=== PATIENT | female | born 1930 | race Asian ===

== ENCOUNTER 2017-12-09 13:08 | Inpatient (IN) | payer MEDICARE, MEDICAID ==
--- NOTE | 2017-12-09 13:18 | ED Physician Chart ---
ED Chief Complaint/HPI - Patient Information Date Seen:: 12/09/17 Time Seen:: 13:05 Chief Complaint:: Poor Oral Intake History of Present Illness:: onset x 3 days of poor oral intake and failure to thrive; no report of trauma, H /as, neck pain, C/P, SOB, Abd. Pain, A/N/V/D/C, fever, chills, or urinary s/s Historian:: Patient Review:: Nurse's Note Reviewed ED Review of Systems - Review of Systems General/Constitutional: No fever, No chills, No weight loss, No weakness, No diaphoresis, No edema, No loss of appetite Skin: No skin lesions, No rash, No bruising Head: No headache, No light-headedness Eyes: No loss of vision, No pain, No diplopia ENT: No earache, No nasal drainage, No sore throat, No tinnitus Neck: No neck pain, No swelling, No thyromegaly, No stiffness, No mass noted Cardio Vascular: No chest pain, No palpitations, No PND, No orthopnea, No edema Pulmonary: No SOB, No cough, No sputum, No wheezing GI: No nausea, No vomiting, No diarrhea, No pain, No melena, No hematochezia, No constipation, No hematemesis G/U: No dysuria, No frequency, No hematuria, No nacturia Director Cardiovascular: No vaginal discharge, No abnormal vaginal bleed, No contraction Musculoskeletal: No bone or joint pain, No back pain, No muscle pain Endocrine: No polyuria, No polydipsia Psychiatric: No prior psych history, No depression, No anxiety, No suicidal ideation, No homicidal ideation, No auditory hallucination, No visual hallucination Hematopoietic: No bruising, No lymphadenopathy Allergic/Immuno: No urticaria, No angioedema Neurological: No syncope, No focal symptoms, No weakness, No paresthesia, No headache, No seizure, No dizziness, Confusion, No vertigo ED Past Medical History - Past Medical History Obtainable: Yes Past Medical History: HTN, DM, CAD, Dyslipidemia, Dementia Family History: Diabetes Melitus, HTN Social History: Non Smoker, No Alcohol, No Drug Use, Single, Care Facility Surgical History: CABG Psychiatricy History: Dementia Medication: Reviewed Family Medical History - Family Member Mother Living Status: ED Physical Exam - Physical Examination General/Constitutional: Awake, Well-developed, well-nourished, Alert, No distress, GCS 15, Non-toxic appearing, Ambulatory Head: Atraumatic Eyes: Lids, conjuctiva normal, PERRL, EOMI Skin: Nl inspection, No rash, No skin lesions, No ecchymosis, Well hydrated, No lymphadenopathy ENMT: External ears, nose nl, TM canals nl, Nasal exam nl, Lips, teeth, gums nl , Oropharynx nl, Tonsils nl Neck: Nontender, Full ROM w/o pain, No JVD, No nuchal rigidity, No bruit, No mass, No stridor Respiratory: Nl effort/Exclusion, Clear to Auscultation, No Wheeze/Rhonchi/Rales Cardio Vascular: RRR, No murmur, gallop, rubs, NL S1 S2, Carotid/Femoral/Distal pulses equal bilaterally GI: No tenderness/rebounding/guarding, No organomegaly, No hernia, Normal BS's, Nondistended, No mass/bruits, No McBurney tenderness : No CVA tenderness Extremities: No tenderness or effusion, Full ROM, normal strength in all extremities, No edema, Normal digits & nails Neuro/Psych: Alert/oriented, DTR's symmetric, Normal sensory exam, Normal motor strength, Judgement/insight normal, Mood normal, Normal gait, No focal deficits Misc: Normal back, No paraspinal tenderness ED Labs/Radiology/EKG Results - Lab Results Comments:: Na+: 131; BUN: 30; + Anemia - Radiology Results Comments:: NAD - EKG Interpretations EKG Time:: 13:38 Rate & Rhythm: 49; SB Comments:: LVH; non-specific st-t changes ED Septic Shock - . Is Septic Shock (SBP<90, OR Lactate>4 mmol\L) present?: No ED Reassessment (Disposition) - Reassessment Reassessment Condition:: Improved - Diagnosis Diagnosis:: Hyponatremia; Dehydration; Failure to Thrive; Poor Oral Intake; Anemia - Aftercare/Follow up Instructions Aftercare/Follow-Up Instructions:: Counseled pt regarding lab results/diagnosis & need follow up, Counseled pt & family regarding lab results/diagnosis & need follow up - Patient Disposition Discharge/Transfer:: Acute Care w/in this hosp Accepting Physician:: Dr. Plasencia Time Called:: 1515 Time Responded:: 15:15 Admitted to:: Med/Surg Spoke to:: Dr. Plasencia Admitting Medical Physician:: Dr. Plasencia Condition at Disposition:: Stable, Improved
[2017-12-09 13:57] LABS: HEMATOCRIT 30.7 % (41.0-60); HEMOGLOBIN 10.4 gm/dL (12-16); MEAN CELL VOLUME 88.3 fl (81-100); MEAN CORPUSCULAR HGB CONC 33.9 pg (28.0-36.0); MEAN PLATELET VOLUME 6.4 fl; PLATELET COUNT 490 Th/cmm (150-400); RED BLOOD COUNT 3.48 Mil/cmm (3.80-5.20); RED CELL DISTRIBUTION WIDTH 18.4 % (11.5-20.0); WHITE BLOOD COUNT 10.4 Th/cmm (4.8-10.8)
[2017-12-09 13:59] LABS: MANUAL DIFF REQUIRED? YES
[2017-12-09 14:01] LABS: INR 0.9 (0.5-1.4); PROTHROMBIN TIME (TEST) 9.4 SECONDS (9.5-11.5)
[2017-12-09 14:07] LABS: ALB/GLOB RATIO 0.8 (1.0-1.8); ALBUMIN 3.4 gm/dL (3.7-5.3); ALKALINE PHOSPHATASE 133 U/L (34-104); ANION GAP 12.5 (7.0-16.0); BILIRUBIN,TOTAL 0.3 mg/dL (0.3-1.0); BUN - UREA NITROGEN 30 mg/dL (7-25); CALCIUM SERUM 9.5 mg/dL (8.6-10.3); CARBON DIOXIDE 21.2 mEq/L (21.0-31.0); CHLORIDE 102 mEq/L (98-107); CREATININE - SERUM 0.9 mg/dL (0.6-1.2); CREATININE KINASE 37 U/L (30-223); GLUCOSE 134 mg/dL (70-105); POTASSIUM SERUM 4.7 mEq/L (3.5-5.1); SGOT 13 U/L (13-39); SGPT/ALT 8 U/L (7-52); SODIUM SERUM 131 mEq/L (136-145); TOTAL PROTEIN,SERUM 7.9 gm/dL (6.0-8.3); TROP I 0.03 ng/mL (0.01-0.05)
[2017-12-09 14:17] LABS: BAND NEUTROPHILE 1 % (0-10); EOSINOPHIL 7 % (0-5); LYMPHOCYTE 17 % (20-50); MONOCYTE 6 % (2-10); NEUTROPHILS 69 % (40-80); TOTAL CELLS COUNTED 100
[2017-12-09 14:19] LABS: URINE BILIRUBIN NEGATIVE (NEGATIVE); URINE BLOOD TRACE (NEGATIVE); URINE GLUCOSE (UA) 100 mg/dL (NEGATIVE); URINE KETONE NEGATIVE (NEGATIVE); URINE LEUKOCYTE ESTERASE NEGATIVE (NEGATIVE); URINE MICROSCOPIC INDICATED? YES; URINE NITRATE NEGATIVE (NEGATIVE); URINE PROTEIN >=300 mg/dL (NEGATIVE); URINE SOURCE MIDSTREAM; URINE UROBILINOGEN 0.2 E.U./dL (0.2 - 1.0)
[2017-12-09 14:23] LABS: URINE CLARITY CLEAR (CLEAR); URINE COLOR YELLOW
[2017-12-09 14:24] LABS: URINE BACTERIA NONE SEEN /hpf (NONE SEEN); URINE EPITHELIAL CELLS NONE SEEN /lpf (FEW); URINE RBC 0-2 /hpf (0-5); URINE WBC NONE SEEN /hpf (0-5)
[2017-12-10 06:50] VITALS: BP 164/44
--- NOTE | 2017-12-10 07:57 | Diagnostic Imaging Report ---
Exam: Frontal examination of chest. HISTORY::. Findings: Frontal examination of the chest was reviewed, no prior studies available for comparison. The study demonstrates multiple metallic sutures status post restaurant thoracotomy. Multiple metallic clips are noted in left axilla. The heart is prominent. Mild congestion cannot be excluded. Right hemidiaphragm is elevated. There is no evidence of active pulmonic infiltrates or effusions. IMPRESSION: 1. Cardiomegaly, status post CABG Question of mild congestion.
[2017-12-10] MEDS: Sodium Chloride 0.9% 1,000 ML IV SCH (18:37)
[2017-12-10] MEDS: NIFEdipine 30 mg ER Tab PO SCH (18:38)
[2017-12-11 07:20] LABS: HEMOGLOBIN 8.8 gm/dL (12-16); MEAN PLATELET VOLUME 6.3 fl; WHITE BLOOD COUNT 8.1 Th/cmm (4.8-10.8)
[2017-12-11 07:27] LABS: HEMATOCRIT 26.7 % (41.0-60); MEAN CELL VOLUME 89.7 fl (81-100); MEAN CORPUSCULAR HEMOGLOBIN 29.5 pg (27.0-31.0); MEAN CORPUSCULAR HGB CONC 32.9 pg (28.0-36.0); PLATELET COUNT 375 Th/cmm (150-400); RED BLOOD COUNT 2.98 Mil/cmm (3.80-5.20); RED CELL DISTRIBUTION WIDTH 18.7 % (11.5-20.0)
[2017-12-11 07:36] LABS: MANUAL DIFF REQUIRED? YES
[2017-12-11 07:45] LABS: ALB/GLOB RATIO 0.8 (1.0-1.8); ALBUMIN 2.7 gm/dL (3.7-5.3); ALKALINE PHOSPHATASE 94 U/L (34-104); ANION GAP 7.6 (7.0-16.0); BILIRUBIN,TOTAL 0.3 mg/dL (0.3-1.0); BUN - UREA NITROGEN 29 mg/dL (7-25); CALCIUM SERUM 8.9 mg/dL (8.6-10.3); CARBON DIOXIDE 23.6 mEq/L (21.0-31.0); CHLORIDE 105 mEq/L (98-107); CREATININE - SERUM 0.9 mg/dL (0.6-1.2); GLUCOSE 145 mg/dL (70-105); POTASSIUM SERUM 4.2 mEq/L (3.5-5.1); SGOT 11 U/L (13-39); SGPT/ALT 6 U/L (7-52); SODIUM SERUM 132 mEq/L (136-145); TOTAL PROTEIN,SERUM 6.1 gm/dL (6.0-8.3)
[2017-12-11 08:12] LABS: BAND NEUTROPHILE 2 % (0-10); EOSINOPHIL 6 % (0-5); LYMPHOCYTE 23 % (20-50); MONOCYTE 3 % (2-10); NEUTROPHILS 66 % (40-80); TOTAL CELLS COUNTED 100
[2017-12-11] MEDS: Sodium Chloride 0.9% 1,000 ML IV SCH (08:24)
--- NOTE | 2017-12-11 09:39 | Internal Medicine Prog Note ---
Internal Medicine Subjective - Subjective Service Date: 12/11/17 ([id number] hn ) Internal Medicine Objective - Results Result Diagrams: 12/11/17 06:45 12/11/17 06:45 Recent Labs: Laboratory Last Values WBC 8.1 Th/cmm (4.8-10.8) 12/11/17 06:45 RBC 2.98 Mil/cmm (3.80-5.20) L 12/11/17 06:45 Hgb 8.8 gm/dL (12-16) L 12/11/17 06:45 Hct 26.7 % (41.0-60) L 12/11/17 06:45 MCV 89.7 fl (81-100) 12/11/17 06:45 MCH 29.5 pg (27.0-31.0) 12/11/17 06:45 MCHC Differential 32.9 pg (28.0-36.0) 12/11/17 06:45 RDW 18.7 % (11.5-20.0) 12/11/17 06:45 Plt Count 375 Th/cmm (150-400) 12/11/17 06:45 MPV 6.3 fl 12/11/17 06:45 Band Neutrophils % 2 % (0-10) 12/11/17 06:45 Neutrophils (Manual) 66 % (40-80) 12/11/17 06:45 Lymphocytes 23 % (20-50) 12/11/17 06:45 Monocytes 3 % (2-10) 12/11/17 06:45 Eosinophils 6 % (0-5) H 12/11/17 06:45 PT 9.4 SECONDS (9.5-11.5) L 12/09/17 13:40 INR 0.90 (0.5-1.4) 12/09/17 13:40 PTT (Actin FS) 27.2 SECONDS (26.0-38.0) 12/09/17 13:40 Sodium 132 mEq/L (136-145) L 12/11/17 06:45 Potassium 4.2 mEq/L (3.5-5.1) 12/11/17 06:45 Chloride 105 mEq/L (98-107) 12/11/17 06:45 Carbon Dioxide 23.6 mEq/L (21.0-31.0) 12/11/17 06:45 Anion Gap 7.6 (7.0-16.0) 12/11/17 06:45 BUN 29 mg/dL (7-25) H 12/11/17 06:45 Creatinine 0.9 mg/dL (0.6-1.2) 03 06:45 Est GFR ( Amer) TNP 12/11/17 06:45 Est GFR (Non-Af Amer) TNP 12/11/17 06:45 BUN/Creatinine Ratio 32.2 12/11/17 06:45 Glucose 145 mg/dL (70-105) H 12/11/17 06:45 Whole Bld Lactic Acid 1.28 mmol/L (0.60-1.99) 12/09/17 13:40 Calcium 8.9 mg/dL (8.6-10.3) 12/11/17 06:45 Total Bilirubin 0.3 mg/dL (0.3-1.0) 12/11/17 06:45 AST 11 U/L (13-39) L 12/11/17 06:45 ALT 6 U/L (7-52) L 12/11/17 06:45 Alkaline Phosphatase 94 U/L (34-104) 12/11/17 06:45 Creatine Kinase 37 U/L (30-223) 12/09/17 13:40 Troponin I 0.03 ng/mL (0.01-0.05) 12/09/17 13:40 Total Protein 6.1 gm/dL (6.0-8.3) 12/11/17 06:45 Albumin 2.7 gm/dL (3.7-5.3) L 12/11/17 06:45 Globulin 3.4 gm/dL 12/11/17 06:45 Albumin/Globulin Ratio 0.8 (1.0-1.8) L 12/11/17 06:45 Urine Source MIDSTREAM 12/09/17 13:30 Urine Color YELLOW 12/09/17 13:30 Urine Clarity CLEAR (CLEAR) 12/09/17 13:30 Urine pH 6.0 (4.6 - 8.0) 12/09/17 13:30 Ur Specific [place] >= 1.030 (1.005-1.030) 12/09/17 13:30 Urine Protein >=300 mg/dL (NEGATIVE) 12/09/17 13:30 Urine Glucose (UA) 100 mg/dL (NEGATIVE) H 12/09/17 13:30 Urine Ketones NEGATIVE mg/dL (NEGATIVE) 12/09/17 13:30 Urine Blood TRACE (NEGATIVE) 12/09/17 13:30 Urine Nitrate NEGATIVE (NEGATIVE) 12/09/17 13:30 Urine Bilirubin NEGATIVE (NEGATIVE) 12/09/17 13:30 Urine Urobilinogen 0.2 E.U./dL (0.2 - 1.0) 12/09/17 13:30 Ur Leukocyte Esterase NEGATIVE (NEGATIVE) 12/09/17 13:30 Urine RBC 0-2 /hpf (0-5) 12/09/17 13:30 Urine WBC NONE SEEN /hpf (0-5) 12/09/17 13:30 Ur Epithelial Cells NONE SEEN /lpf (FEW) 12/09/17 13:30 Urine Bacteria NONE SEEN /hpf (NONE SEEN) 12/09/17 13:30 - Physical Exam Vitals and I&O: Vital Signs Temp 97.2 F 12/11/17 04:00 Pulse 58 12/11/17 04:00 Resp 17 12/11/17 04:00 BP 158/36 12/11/17 04:00 Pulse Ox 97 12/11/17 04:00 Intake & Output 12/10/17 12/11/17 12/11/17 18:59 06:59 18:59 Intake Total 400 1000 Balance 400 1000 Weight (lbs) 103 lb Intake: Intake, IV Amount 1000 Sodium Chloride 0.9% 1, 1000 000 ml @ 100 mls/hr IV . Q10H [facility] Rx#:[id number] Oral 400 Other: # Voids 4 # Bowel Movements 0 Active Medications: Current Medications Aspirin (Aspirin Chewable) 81 mg PO DAILY DIANA Stop: 02/09/18 08:59 Donepezil HCl (Aricept) 10 mg PO HS DIANA Stop: 02/08/18 20:59 Last Admin: 12/10/17 20:36 Dose: 10 mg Sodium Chloride (Nacl 0.9%) 1,000 mls @ 100 mls/hr IV .Q10H DIANA Stop: 02/08/18 16:58 Last Admin: 12/11/17 08:24 Dose: 100 mls/hr Losartan Potassium (Cozaar) 50 mg PO BID DIANA Stop: 02/08/18 16:59 Last Admin: 12/10/17 18:37 Dose: 50 mg Metoprolol Succinate (Toprol Xl) 50 mg PO BID [facility] Stop: 02/08/18 16:59 Last Admin: 12/10/17 18:38 Dose: 50 mg Nifedipine (Procardia Xl) 30 mg PO BID [facility] Stop: 02/08/18 16:59 Last Admin: 12/10/17 18:38 Dose: 30 mg Nutritional Asmnt/Malnutr-PDOC - Dietary Evaluation Malnutrition Findings (Please click <Entered> for more info): Nutritional Asmnt/Malnutrition Start: 12/10/17 14: 52 Text: Status: Complete Freq: Document 12/10/17 15:01 MARINA (Rec: 12/10/17 15:14 MARINA [id number]) Nutritional Asmnt/Malnutrition Patient General Information Nutritional Screening High Risk Diagnosis FTT, hyponatremia Pertinent Medical Hx/Surgical Hx HTn, CAD, DM, dyslipidemia, dementia, CABG Subjective Information Per ER notes, pt had poor PO and FTT x 3 days. Pt seen lying in bed at second time of visist, alert but forgetful. Pt stated good appetite, food preference provided. Current Diet Order/ Nutrition Support regular Pertinent Medications none Pertinent Labs 3/7 Na 131, K 4.7, Cl 102, BUN 30, Cr 0.9, Glucose 134, Ca 9 .5, Alb 3.4 Nutritional Hx/Data Height 4 ft 7 in Height (Calculated Centimeters) 139.7 Current Weight (lbs) 103 lb Weight (Calculated Kilograms) 46.7 Weight (Calculated Grams) 91310.0 [place] Body Weight 90 Body Mass Index (BMI) 23.9 Weight Status Approriate GI Symptoms GI Symptoms None Last BM none Difficult in: None Skin Integrity/Comment: pressure area to left heel, DTI Estimated Nutritional Goals BEE in Kcals: Using Current wt Calories/Kcals/Kg 25-30 Kcals Calculated 8624-0549 Protein: Using Current wt Protein g/k-1.2 Protein Calculated 47-56 Fluid: ml 1175-1410ml (1ml/kcal) Nutritional Problem 1. Problem Problem altered nutrition related lab values Etiology electrolytes imbalanced, hx of DM Signs/Symptoms: Na 131, glucose 134 Malnutrition Alert Protein-Calorie Malnutrition N/A Is there a minimum of two criteria No selected? Query Text:Check all the applicable criteria. A minimum of two criteria are recommended for diagnosis of either severe or non-severe malnutrition. Intervention/Recommendation Comments 1. Continue with current diet as ordered. diet profile updated. 2. Monitor PO intake, wt, labs and skin integrity 3. F/U as low risk in 7 days, 12/17, Po check 12/14 Expected Outcomes/Goals Expected Outcomes/Goals 1. PO intake to meet at least 75% of nutritional needs. 2. Wt stability, skin to remain intact, labs to approach WNL.
[2017-12-11] MEDS: Aspirin 81mg Chewable Tab PO SCH (10:00)
[2017-12-11] MEDS: NIFEdipine 30 mg ER Tab PO SCH ×2 (10:00→18:11)
--- NOTE | 2017-12-11 10:30 | History & Physical ---
ADMIT DATE: 12/11/2017 CHIEF COMPLAINT: Poor oral intake. HISTORY OF PRESENT ILLNESS: This is an 87-year-old female who is a residential resident who is brought here to [facility] due to a 3-day history of poor oral intake and failure to thrive. The patient did not have any fevers at the residential for further management. The patient is now admitted to the med/surg unit. PAST MEDICAL HISTORY: Hypertension, diabetes, CAD, dyslipidemia, dementia. SOCIAL HISTORY: The patient is a residential resident, content of her nursing care. SURGICAL HISTORY: CABG. MEDICATIONS: Please see medication reconciliation. REVIEW OF SYSTEMS: GENERAL: Denies any fevers or chills. CARDIOVASCULAR: Denies chest pain. RESPIRATORY: Denies shortness of breath. GASTROINTESTINAL: Denies nausea, vomiting, abdominal pain. GENITOURINARY: Denies increased frequency or dysuria. NEUROLOGIC: No headaches, seizures or syncope. All other systems are reviewed and are negative. PHYSICAL EXAMINATION: GENERAL: This is an elderly female, awake, alert with some confusion. No apparent distress. VITAL SIGNS: Temperature 97.2, heart rate 58, blood pressure 158/136, respirations 17, O2 97%. HEENT: Head; normocephalic, atraumatic. NECK: Supple. No mass. LUNGS: Clear bilaterally. ABDOMEN: Soft, nontender. LABORATORY DATA: WBC 8.1, H and H 8.8 and 26.7, platelet of 375. Sodium 132, potassium 4.2, chloride 105, BUN 29, creatinine 0.9. The patient had a urinalysis done, negative for any UTI. DIAGNOSTIC: The patient had a chest x-ray done. Impression is cardiomegaly, status post CABG, question of mild congestion. ASSESSMENT: Failure to thrive, poor oral intake, hyponatremia, acute dehydration. PLAN: The patient to be admitted to the med/surg unit. We will keep the patient on IV fluids for hydration. Get GI on the case. We will continue to monitor this patient. JOB# [id number]
--- NOTE | 2017-12-11 21:56 | Consultation ---
DATE OF CONSULTATION: 12/11/2017 INPATIENT GASTROINTESTINAL CONSULTATION REFERRING PHYSICIANS: Marimar Parks N.P. and Dr. Plasencia. REASON FOR CONSULTATION: Anorexia. HISTORY OF PRESENT ILLNESS: An 87-year-old female from a senior living, had 3 days of poor oral intake, failure to thrive and therefore was sent to the hospital for further management. The patient denies having any abdominal pain. She denies nausea, vomiting, diarrhea, constipation, or GI bleeding. PAST MEDICAL HISTORY: Hypertension, diabetes, coronary artery disease, hyperlipidemia, and dementia. PAST SURGICAL HISTORY: CABG. FAMILY HISTORY: Noncontributory. SOCIAL HISTORY: Denies tobacco, alcohol, or IV drug usage. ALLERGIES: SHELLFISH. CURRENT MEDICATIONS: Aricept, aspirin, Cozaar, Toprol, and Procardia. REVIEW OF SYSTEMS: Ten-point review of system was performed. The pertinent positive was the failure to thrive. All the systems were otherwise negative. PHYSICAL EXAMINATION: VITAL SIGNS: Temperature is 97.2, breathing 17, pulse of 58, blood pressure 158/36, and satting 97%. GENERAL: In no apparent distress. EYES: Anicteric. Normal conjunctivae. HEENT: Normocephalic and atraumatic. Moist mucous membranes. NECK: Soft and supple. CHEST: Clear. No effort. CARDIOVASCULAR: Regular rate and rhythm. ABDOMEN: Soft, nontender, and nondistended. SKIN: Warm and dry. EXTREMITIES: Revealed no cyanosis. PSYCHOLOGIC: Alert and oriented x 3. LABORATORY DATA: LFTs were within normal limits. IMPRESSION: This is an 87-year-old female with anorexia, failure to thrive. In discussing the matters with the patient, she denies having any anorexia. She states she is able to eat. This was confirmed with my discussion with several nurses who said that she is able to eat her meals without any difficulty. I did offer her a feeding tube should she not be able to eat and to give her nutrition to prevent failure to thrive, but she does not want it. She states that since she is able to eat why does she need a feeding tube. The case was also discussed with Marimar Parks, the person who called for the consult. I explained to her that the patient at this time is able to eat and does not want a feeding tube. Since the patient is able to eat, at this time I do not recommend insertion of a feeding tube because the complications outweigh the benefits. In the future should the patient ever need a feeding tube, then they can be reconsidered. PLAN: 1. Continue encourage p.o. diet. 2. We would reserve feeding tube placement in the future if the patient needs it. 3. Case was discussed with Marimar Parks. 4. I will sign off. Please call if you have any questions. [facility]# [id number]
[2017-12-12 07:20] LABS: HEMATOCRIT 25.6 % (41.0-60); HEMOGLOBIN 8.7 gm/dL (12-16); MEAN CELL VOLUME 88.6 fl (81-100); MEAN CORPUSCULAR HEMOGLOBIN 30.3 pg (27.0-31.0); MEAN CORPUSCULAR HGB CONC 34.1 pg (28.0-36.0); MEAN PLATELET VOLUME 6.1 fl; PLATELET COUNT 379 Th/cmm (150-400); RED BLOOD COUNT 2.89 Mil/cmm (3.80-5.20); RED CELL DISTRIBUTION WIDTH 18.5 % (11.5-20.0); WHITE BLOOD COUNT 7.6 Th/cmm (4.8-10.8)
[2017-12-12 07:40] LABS: MANUAL DIFF REQUIRED? YES
[2017-12-12 07:48] LABS: ALB/GLOB RATIO 0.8 (1.0-1.8); ALBUMIN 2.7 gm/dL (3.7-5.3); ALKALINE PHOSPHATASE 97 U/L (34-104); ANION GAP 7.1 (7.0-16.0); BILIRUBIN,TOTAL 0.3 mg/dL (0.3-1.0); BUN - UREA NITROGEN 24 mg/dL (7-25); CALCIUM SERUM 8.9 mg/dL (8.6-10.3); CHLORIDE 106 mEq/L (98-107); CREATININE - SERUM 0.8 mg/dL (0.6-1.2); GLUCOSE 122 mg/dL (70-105); POTASSIUM SERUM 4.1 mEq/L (3.5-5.1); SGOT 11 U/L (13-39); SGPT/ALT 6 U/L (7-52); SODIUM SERUM 132 mEq/L (136-145); TOTAL PROTEIN,SERUM 6.2 gm/dL (6.0-8.3)
[2017-12-12 08:24] LABS: BAND NEUTROPHILE 1 % (0-10); EOSINOPHIL 7 % (0-5); LYMPHOCYTE 24 % (20-50); MONOCYTE 3 % (2-10); NEUTROPHILS 65 % (40-80); TOTAL CELLS COUNTED 100
[2017-12-12] MEDS: Aspirin 81mg Chewable Tab PO SCH (09:40)
[2017-12-12] MEDS: NIFEdipine 30 mg ER Tab PO SCH (09:41)
[2017-12-12] MEDS: Sodium Chloride 0.9% 1,000 ML IV SCH (10:46)
--- NOTE | 2017-12-13 00:10 | Progress Notes ---
DATE: 12/12/2017 SUBJECTIVE: The patient was seen in her room, lying in the bed. The patient appears to be comfortable, in no acute distress. Denies any pain or discomfort at this time. OBJECTIVE: VITAL SIGNS: Temperature of 97.6, heart rate of 52, respirations of 18, blood pressure 152/46, and 99% on room air. HEENT: Head is atraumatic and normocephalic. Eyes: Bilateral conjunctivae are clear. Bilateral pupils are equally round and reactive. NECK: Supple. No JVD. CARDIOVASCULAR: S1 and S2 without murmur. PULMONARY: Clear to auscultation. GASTROINTESTINAL: Soft and nontender without guarding. Positive bowel sounds. MUSCULOSKELETAL: No clubbing. No cyanosis noted. ASSESSMENT: 1. Failure to thrive. 2. Acute dehydration. 3. Hypertension. 4. Dementia. 5. Failure to thrive. PLAN: The patient is medically clear. The patient will be discharged going to a [facility]. Treatment plan was discussed with the patient's nurse. Treatment plans were discussed with Dr. Plasencia. JOB# [id number]
== END 2017-12-12 14:00 | DRG 640 ==
LOC: ER 13:08 → MSI 17:01
PROVIDERS: ADMIT Internal Medicine; ATTEND Internal Medicine
DX: E86.0 Dehydration (principal); E41 Nutritional marasmus; E11.9 Type 2 diabetes mellitus without complications; D64.9 Anemia, unspecified; E87.1 Hypo-osmolality and hyponatremia; E78.5 Hyperlipidemia, unspecified; F03.90 Unspecified dementia, unspecified severity, without behavioral disturbance, psychotic disturbance, mood disturbance, and anxiety; R62.7 Adult failure to thrive; I11.9 Hypertensive heart disease without heart failure; Z95.1 Presence of aortocoronary bypass graft; I25.10 Atherosclerotic heart disease of native coronary artery without angina pectoris; Z91.013 Allergy to seafood; Z83.3 Family history of diabetes mellitus; Z82.49 Family history of ischemic heart disease and other diseases of the circulatory system; Z68.23 Body mass index [BMI] 23.0-23.9, adult
CPT/HCPCS: 36415-UA; 71045-TC; 80053-TC; 81001-TC; 82550-TC; 83605; 84484-TC; 85007-TC; 85025-TC; 85027-TC; 85610-TC; 85730-TC; 93005; J7030; Z7610